=== PATIENT | female | born 2000 | race Two or more races ===

== ENCOUNTER 2020-09-16 00:35 | Emergency (ER) | payer BC, MEDICAID ==
[~2020-09-16] VITALS: Ht 170.2 cm; Wt 70.8 kg
[2020-09-16 00:35] VITALS: BP 122/85
[2020-09-16] MEDS ORDERED: KETO10TA2 PO (02:01)
--- NOTE | 2020-09-16 02:12 | NUR ---
CRUTCHES PROVIDED TO THE PT.
--- NOTE | 2020-09-16 02:12 | NUR ---
PAULINE BANDAGES APPLIED TO LEFT KNEE.
--- NOTE | 2020-09-16 02:12 | NUR ---
Patient discharged to home in stable condition. Written and verbal after care instructions given. Patient verbalizes understanding of instruction.
== END 2020-09-16 02:23 | disposition home or self-care (01) ==
LOC: ER 00:39
DX: S83.8X2A Sprain of other specified parts of left knee, initial encounter (principal); S93.492A Sprain of other ligament of left ankle, initial encounter; W18.39XA Other fall on same level, initial encounter; Y93.89 Activity, other specified; Y92.89 Other specified places as the place of occurrence of the external cause; Y99.8 Other external cause status
CPT/HCPCS: 73564-TC; 73610-TC